=== PATIENT | male | born 1965 | race Caucasian/White ===

== ENCOUNTER 2019-12-14 09:08 | Emergency (ER) | payer BC ==
[~2019-12-14] VITALS: Ht 182.9 cm; Wt 75.7 kg
[2019-12-14 09:13] VITALS: BP 155/79
--- NOTE | 2019-12-14 09:18 | NUR ---
pt ambulated to bed 4 with steady gait.
--- NOTE | 2019-12-14 09:19 | NUR ---
pt to restroom.
--- NOTE | 2019-12-14 09:20 | NUR ---
C/O RLQ THAT BEGAN EARLY THIS MORNING, PT STATES HE TOOK IBUPROFEN AT 1230AM 600MG. PAIN IS 8/10, CONSTANT AND STABBING IN CHARACTER. N/V/D . PT AOX 4 , AFIBRILE , AMBULATORY WITH STEADY GAIT , PINK PALPEBRAL CONJUNCTIVA , ANICTERIC SCLERA , SCE , FLAT SOFT ABDOMEN. NO PMH NKA
--- NOTE | 2019-12-14 09:43 | NUR ---
DR LUCIA AT BEDSIDE RVALUATING PT.
[2019-12-14] MEDS ORDERED: NACL 0.9% 1,000 ML IV SCH (09:45)
[2019-12-14] MEDS ORDERED: KETOROLAC 30 MG/ML VIAL IVP ONE (09:45)
--- NOTE | 2019-12-14 10:09 | NUR ---
PT TO CT SCAN VIA WHEELCHAIR.
[2019-12-14 10:12] LABS: BASOPHILS % (AUTO) 0.5 % (0.0-2.0); EOSINOPHILS # (AUTO) 0.1 K/uL (0-0.4); EOSINOPHILS % (AUTO) 1.9 % (0.0-4.0); HEMATOCRIT 41.3 % (36-52); HEMOGLOBIN 13.9 g/dL (12.0-18.0); LYMPHOCYTES % (AUTO) 18.5 % (20.5-51.1); MEAN CORPUSCULAR HEMOGLOBIN 31 pg (27-31); MEAN CORPUSCULAR HGB CONC 34 g/dL (33-37); MEAN CORPUSCULAR VOLUME 91.4 fL (80-94); MONOCYTES # (AUTO) 0.7 K/uL (0.8-1.0); MONOCYTES % (AUTO) 11.5 % (1.7-9.3); NEUTROPHILS # (AUTO) 3.8 K/uL (1.8-7.7); NEUTROPHILS % (AUTO) 67.6 % (42.2-75.2); PLATELET COUNT (AUTO) 210 K/uL (140-450); RED BLOOD CELL COUNT(AUTO) 4.52 MIL/uL (4.20-6.10); RED CELL DISTRIBUTION WIDTH 13.5 % (11.6-13.7); WHITE BLOOD COUNT (AUTO) 5.7 K/uL (4.8-10.8)
--- NOTE | 2019-12-14 10:15 | NUR ---
PT BACK FROM CT SCAN.
[2019-12-14 10:24] LABS: ALBUMIN 3.9 g/dL (3.4-5.0); ANION GAP 11.2 (8-16); CARBON DIOXIDE 28.7 mmol/L (21-32); CREATININE 0.8 mg/dL (0.6-1.3); POTASSIUM 3.9 mmol/L (3.5-5.1); TOTAL BILIRUBIN 0.8 mg/dL (0.0-1.0)
--- NOTE | 2019-12-14 10:48 | NUR ---
DR LUCIA AT [facility] PT.
[2019-12-14 10:54] LABS: APPEARANCE,URINE CLOUDY (CLEAR); BILIRUBIN,URINE NEGATIVE (NEGATIVE); BLOOD, URINE 3+ (NEGATIVE); COLOR,URINE AMBER (YELLOW); LEUKOCYTE ESTERASE ,URINE NEGATIVE (NEGATIVE); NITRITE, URINE NEGATIVE (NEGATIVE); UGLUCOSE NEGATIVE (NEGATIVE)
[2019-12-14 11:07] LABS: RBC,URINE 80-100 /HPF (0-5); WBC,URINE 0-5 /HPF (0-5)
[2019-12-14 11:46] VITALS: BP 155/79
--- NOTE | 2019-12-14 11:46 | NUR ---
Patient discharged with v/s stable. Written and verbal after care instructions given and explained regarding kidney stone. Patient alert, oriented and verbalized understanding of instructions. Ambulatory with steady gait. All questions addressed prior to discharge. ID band removed. Patient advised to follow up with PMD. Rx of motrin , norco and flomax given. Patient educated on indication of medication including possible reaction and side effects. Opportunity to ask questions provided and answered.
== END 2019-12-14 11:46 | disposition home or self-care (01) ==
LOC: MED 09:08
DX: R10.32 Left lower quadrant pain (principal); N20.0 Calculus of kidney
CPT/HCPCS: 36415; 74176; 80053; 81001; 83690; 85025; 87086; 96361; 96374; 99284; J1885; J7030

== ENCOUNTER 2020-10-22 09:56 | Emergency (ER) | payer BC ==
[~2020-10-22] VITALS: Ht 182.9 cm; Wt 74.4 kg
--- NOTE | 2020-10-22 10:06 | NUR ---
pt ambulated to bed 03.
[2020-10-22 10:09] VITALS: BP 134/93
--- NOTE | 2020-10-22 10:12 | NUR ---
PT WAS BIB SELF WITH CC HEADACHE X 5 DAYS. PT STATES THE PAIN IS LOCATED AT THE BACK OF THE HEAD AND RADIATES TO THE RIGHT EAR. PT STATES THE PAIN AT A SCALE OF 8/10 AND THROBBING IN CHARACTERISITIC. PT TOOK TYELNOL WITH MINIMAL RELIEF. HX COVID IN MAY 2020 AND HLD. PT IS NOT TAKING ANY MEDICATION. DENIES PMH. DENIES ANY ALLERGIES TO MEDICATIONS. PT DENIES ANY INJURY TO HEAD, BACK, OR NECK. WILL CONTINUE TO MONITOR.
--- NOTE | 2020-10-22 10:31 | NUR ---
CALLED CT TO REMIND THEM ABOUT CT OF HEAD BUT NO ANSWER. WILL CALL BACK.
--- NOTE | 2020-10-22 10:42 | NUR ---
PT WAS TAKEN TO CT SCAN OF THE HEAD ACCOMPANIED BY NURSING ADMINISTRATOR. PT WAS TAKEN VIA WHEELCHAIR.
--- NOTE | 2020-10-22 10:55 | NUR ---
ERMD AT BEDSIDE.
[2020-10-22] MEDS ORDERED: KETOROLAC 60 MG/2 ML VIAL IM ONE (11:05)
--- NOTE | 2020-10-22 11:20 | NUR ---
PT STATES THAT THE PAIN HAS IMPROVED ON HIS HEAD. PAIN IS STATED A 3/10. PT STATES IT IS TOLERABLE.
[2020-10-22] MEDS ORDERED: IBUP-2213 PO (12:03)
[2020-10-22] MEDS ORDERED: ACET-8386 PO (12:03)
--- NOTE | 2020-10-22 12:16 | NUR ---
Patient discharged with v/s stable. Written and verbal after care instructions given and explained. Patient alert, oriented and verbalized understanding of instructions. Ambulatory with steady gait. All questions addressed prior to discharge. ID band removed. Patient advised to follow up with PMD. Rx of MOTRIN AND NORCO given. Patient educated on indication of medication including possible reaction and side effects. Opportunity to ask questions provided and answered.
[2020-10-22 12:22] VITALS: BP 134/93
== END 2020-10-22 12:16 | disposition home or self-care (01) ==
LOC: MED 09:56
DX: R51.9 Headache, unspecified (principal); H53.9 Unspecified visual disturbance
CPT/HCPCS: 70450; 96372; 99284; J1885